=== PATIENT | male | born 2000 | race Caucasian/White ===

== ENCOUNTER 2020-07-26 17:00 | Emergency (ER) | payer OTHER ==
[2020-07-26 17:05] VITALS: RESP 18; TEMP 98.6
[2020-07-26] MEDS ORDERED: HYDROcodone/APAP 5-325MG 1 EACH TAB PO STA (17:13)
--- NOTE | 2020-07-26 17:32 | XR ---
EXAMINATION TYPE: XR shoulder complete LT DATE OF EXAM: 07/26/2020 COMPARISON: NONE HISTORY: Shoulder pain TECHNIQUE: 3 views FINDINGS: There is lucent line projected vertically through the scapula on one view suggestive of a n ondisplaced fracture that is approximate 1.5 cm from the articular surface of the glenoid. The proxim al humerus is intact. AC joint is intact. IMPRESSION: Possible hairline fracture of the scapula.
[2020-07-26] MEDS ORDERED: ACET/COD 300 MG/30 MG STARTER PACK 6 TAB BTL PO STA (17:53)
--- NOTE | 2020-07-26 17:53 | ED ---
Upper Extremity HPI - General Chief Complaint: Extremity Injury, Upper Stated Complaint: shoulder injury Time Seen by Provider: 07/26/20 17:06 Source: patient Mode of arrival: ambulatory Limitations: no limitations - History of Present Illness Initial Comments: 19-year-old male presents to the emergency room with the chief complaint of shoulder injury. Patient states that incident occurred about 2 hours prior to arrival while he was snowboarding. Patient reports he took a hard fall with his left shoulder extended out. Patient reports he felt several cracking noises and he had limited range of motion due to pain. Patient reports the pain is exacerbated with flexion and extension or abduction. N He denies taking medication to alleviate the symptoms. Denies any numbness or tingling. states the pain is sharp 5/10. denies head injury, LOC. - Related Data Allergies Allergy/AdvReac Type Severity Reaction Status Date / Time No Known Allergies Allergy Verified 07/26/20 17:05 Review of Systems ROS Statement: Those systems with pertinent positive or pertinent negative responses have been documented in the HPI. ROS Other: All systems not noted in ROS Statement are negative. Past Medical History Past Medical History: No Reported History History of Any Multi-Drug Resistant Organisms: None Reported Additional Past Surgical History / Comment(s): nose sx Past Psychological History: No Psychological Hx Reported Smoking Status: Never smoker Past Alcohol Use History: None Reported Past Drug Use History: None Reported General Exam Limitations: no limitations General appearance: alert, in no apparent distress Head exam: Present: atraumatic, normocephalic, normal inspection Eye exam: Present: normal appearance, PERRL, EOMI Pupils: Present: normal accommodation ENT exam: Present: normal exam, normal oropharynx, mucous membranes moist, TM's normal bilaterally, normal external ear exam Neck exam: Present: normal inspection, full ROM. Absent: tenderness Respiratory exam: Present: normal lung sounds bilaterally. Absent: respiratory distress Cardiovascular Exam: Present: regular rate, normal rhythm, normal heart sounds GI/Abdominal exam: Present: soft. Absent: distended Extremities exam: Present: normal inspection, tenderness (anterolateral tenderness over the left shoulder), normal capillary refill, other (palpable ulnar and radial pulses bilaterally). Absent: full ROM (limited active range of motion with abduction and flexion or extension left shoulder. Full passive range of motion), pedal edema, joint swelling, calf tenderness Back exam: Present: normal inspection, full ROM. Absent: tenderness Neurological exam: Present: alert, oriented X3 Psychiatric exam: Present: normal affect, normal mood Skin exam: Present: warm, dry, intact, normal color Course Vital Signs 07/26/20 17:01 Temperature 98.6 F Pulse Rate 83 Respiratory 18 Rate Blood Pressure 142/88 O2 Sat by Pulse 98 Oximetry Medical Decision Making - Medical Decision Making 19-year-old male presents to the emergency department with a chief complaint of left shoulder injury. On physical examination, he is neurovascularly intact. Patient was given Woden for pain. X-ray reveals a possible hairline fracture of the scapula. Tylenol 3 for pain. I still suspect there is a rotator cuff injury. Sling applied. Orthopedics follow-up. Return parameters discussed. Case discussed with Dr. Rizzo. Disposition Clinical Impression: Shoulder injury, Scapular fracture Disposition: HOME SELF-CARE Condition: Stable Instructions (If sedation given, give patient instructions): Rotator Cuff Injury (ED), Scapular Fracture (ED) Additional Instructions: Follow-up with home health specialist. Take prescribed medication as directed. Alternate between Tylenol and Motrin.Please return to the Emergency Department if symptoms worsen or any other concerns. Is patient prescribed a controlled substance at d/c from ED?: No Referrals: None,Stated [Primary Care Provider] - 1-2 days Drake Wagner MD [STAFF PHYSICIAN] - 1-2 days Time of Disposition: 17:53
[2020-07-26 18:09] VITALS: BP 130/66; PULSE 88
== END 2020-07-26 18:16 | disposition home or self-care (01) ==
LOC: EC 17:00
DX: S42.102A Fracture of unspecified part of scapula, left shoulder, initial encounter for closed fracture (principal); V00.311A Fall from snowboard, initial encounter; Y93.23 Activity, snow (alpine) (downhill) skiing, snowboarding, sledding, tobogganing and snow tubing
CPT/HCPCS: 99283

== ENCOUNTER → 2020-07-31 | Outpatient (CLI) | payer OTHER ==
--- NOTE | 2020-07-31 21:29 | CT ---
EXAMINATION TYPE: CT shoulder LT wo con DATE OF EXAM: 07/31/2020 COMPARISON: Radiographs 07/26/2020. HISTORY: Left shoulder pain after snowboarding injury. CT DLP: 345.7 mGycm Automated exposure control for dose reduction was used. Axial CT images of the left shoulder was perf ormed without contrast in bone and soft tissue windows. Coronal, sagittal and 3-D reformats were prov ided and reviewed. FINDINGS: There is nondisplaced oblique, extra-articular fracture of the superior to mid scapular body. No evid ence of dislocation or joint effusion. The remaining visualized osseous structures are in anatomic al ignment. The joint spaces are preserved. There is mild soft tissue edema about the fracture site. IMPRESSION: NONDISPLACED LEFT SCAPULAR FRACTURE.
== END | disposition home or self-care (01) ==
LOC: RADCTMAIN 16:36
PROVIDERS: ATTEND Orthopaedic Surgery Sports Medicine
DX: S42.102A Fracture of unspecified part of scapula, left shoulder, initial encounter for closed fracture (principal)

== ENCOUNTER → 2023-09-22 | Outpatient (CLI) | payer OTHER, BC ==
[2023-09-23 01:56] LABS: Basophils # (A) 0.05 X 10*3/uL (0.00-0.10); Basophils % (A) 0.8 %; Eosinophils # (A) 0.27 X 10*3/uL (0.04-0.35); Eosinophils % (A) 4.5 %; HCT 43.9 % (39.6-50.0); HGB 14.5 g/dL (13.0-17.0); Lymphocytes # (A) 1.17 X 10*3/uL (0.90-5.00); Lymphocytes % (A) 19.3 %; MCH 32.5 pg (27.0-32.0); MCV 98.4 FL (80.0-97.0); Mean Platelet Volume 9.7 FL (9.5-12.2); Monocytes # (A) 0.64 X 10*3/uL (0.20-1.00); Monocytes % (A) 10.6 %; NRBC Per 100 WBC 0 X 10*3/uL (0.00-0.01); Neutrophils % (A) 64.3 %; Platelet Count 322 X 10*3/uL (140-440); RBC 4.46 X 10*6/uL (4.40-5.60); RDW 12.6 % (11.5-14.5); WBC 6.06 X 10*3/uL (4.50-10.00)
== END | disposition home or self-care (01) ==
LOC: LABPAT 16:10
PROVIDERS: ATTEND Surgery
DX: Z01.818 Encounter for other preprocedural examination (principal); K40.90 Unilateral inguinal hernia, without obstruction or gangrene, not specified as recurrent; F17.200 Nicotine dependence, unspecified, uncomplicated; D64.9 Anemia, unspecified
CPT/HCPCS: 36415; 85025; 86850; 86900; 86901; 93005

== ENCOUNTER 2023-10-02 08:24 | Day surgery (SDC) | payer BC, OTHER ==
[2023-09-28 11:00] VITALS: BMI 22.0
--- NOTE | 2023-10-02 09:06 | P.GSHP ---
History of Present Illness H&P Date: 10/02/23 Chief Complaint: Left inguinal hernia 22-year-old male here today for elective repair left inguinal hernia. Increasing in size. Last seen in the office in the fall. Mild soreness at times. No prior hernias. Past Medical History Past Medical History: No Reported History Additional Past Medical History / Comment(s): LT INGUINAL HERNIA History of Any Multi-Drug Resistant Organisms: None Reported Additional Past Surgical History / Comment(s): nose sx Past Anesthesia/Blood Transfusion Reactions: No Reported Reaction Smoking Status: Never smoker - Past Family History Mother Family Medical History: No Reported History Medications and Allergies Home Medications Medication Instructions Recorded Confirmed Type No Known Home Medications 09/28/23 10/02/23 History Allergies Allergy/AdvReac Type Severity Reaction Status Date / Time No Known Allergies Allergy Verified 10/02/23 08:56 Surgical - Exam Vital Signs Temp Pulse Resp BP Pulse Ox 97.1 F L 61 16 123/72 99 10/02/23 09:01 10/02/23 09:01 10/02/23 09:01 10/02/23 09:01 10/02/23 09:01 Physical exam: General: Well-developed, well-nourished HEENT: Normocephalic, sclerae nonicteric Abdomen: Nontender, nondistended, reducible left inguinal hernia Extremities: No edema Neuro: Alert and oriented Assessment and Plan (1) Left inguinal hernia Narrative/Plan: 22-year-old male with left inguinal hernia. Will proceed with laparoscopic da Priya assisted repair left inguinal hernia with mesh, possible open, possible bilateral. Risks of bleeding, infection, recurrence, bladder and bowel injury, numbness, nerve injury, conversion to an open procedure were discussed with the patient. The patient understands and wishes to proceed. Current Visit: Yes Status: Acute Code(s): K40.90 - UNIL INGUINAL HERNIA, W/O OBST OR GANGR, NOT SPCF RECUR SNOMED Code(s): 212174921
[2023-10-02] MEDS: DEXAMETHASONE SOD PHOSPHATE 4 MG/ML 1 ML VIAL IV ONE (09:30)
[2023-10-02] MEDS: ACETAMINOPHEN TAB 500 MG TAB PO PRN (09:30)
[2023-10-02] MEDS: ONDANSETRON 4 MG/2 ML VIAL IVP ONE (09:30)
[2023-10-02] MEDS: HEPARIN SODIUM,PORCINE 5,000 UNIT/ML 1 ML VIAL SQ PRN (09:30)
[2023-10-02] MEDS: LACTATED RINGERS 1,000 ML IV SCH (09:30)
[2023-10-02] MEDS: TAMSULOSIN 0.4 MG CAP.ER.24H PO ONE (09:35)
[2023-10-02] MEDS ORDERED: SUCCINYLCHOLINE CHLORIDE 200 MG/10 ML VIAL IV ONE (10:03)
[2023-10-02] MEDS ORDERED: MIDAZOLAM 2 MG/2 ML VIAL ONE (10:03)
[2023-10-02] MEDS ORDERED: LIDOCAINE 1% INJ 10MG/ML (20 ML MDV) ONE (10:03)
[2023-10-02] MEDS ORDERED: PROPOFOL 10 MG/ML 20 ML VIAL IV ONE (10:03)
[2023-10-02] MEDS ORDERED: NEOSTIGMINE 1 MG/ML 10 ML VIAL ONE (10:03)
[2023-10-02] MEDS ORDERED: fentaNYL (PF) 50 MCG/ML 2 ML AMP ONE (10:03)
[2023-10-02] MEDS ORDERED: ROCURONIUM 10 MG/ML (5 ML VIAL) IV ONE (10:03)
[2023-10-02] MEDS ORDERED: GLYCOPYRROLATE 0.2 MG/ML 2 ML VIAL ONE (10:03)
[2023-10-02] MEDS: BUPIVACAINE (PF) 0.25% 30 ML VIAL SQ ONE ×2 (10:25→10:31)
[2023-10-02] MEDS: LACTATED RINGERS 1,000 ML IV ONE (11:34)
--- NOTE | 2023-10-02 11:54 | P.OP ---
Date of Procedure: 10/02/23 Procedure(s) Performed: PREOPERATIVE DIAGNOSIS: Left inguinal hernia POSTOPERATIVE DIAGNOSIS: Left indirect inguinal hernia PROCEDURE: Laparoscopic da Priya assisted repair left indirect inguinal hernia with mesh SURGEON: Dr. Jones ANESTHESIA: General OPERATIVE PROCEDURE DETAILS: Patient was placed in the operating table in the supine position. The patient was placed under general anesthesia. The abdomen was prepped and draped in usual sterile fashion. A small curvilinear supraumbilical incision was made. The fascia was retracted anteriorly with January forceps. The Veress needle was inserted. The saline drop test was normal. Insufflation took place to 15 mmHg. An 8 mm trocar was placed into the peritoneal cavity. 2 additional 8 mm trochars were placed in the right upper quadrant and left upper quadrant under visualization. The robotic arms were then brought in and docked into place. The fenestrated bipolar was used in the left arm and the laparoscopic gareth was utilized in the right arm. A 30 8 mm scope was used in the up position. The peritoneal cavity was inspected. The patient had a moderate sized indirect hernia on the left-hand side. No hernia was seen on the right. The peritoneum was incised in a horizontal fashion cephalad to the internal inguinal ring. Following that careful dissection of the preperitoneal space took place. This took place using both electrocautery, sharp dissection but primarily blunt dissection. Visualization of the pubic tubercle and Alverto's ligament took place medially. Full dissection took place laterally as well. The hernia sac was fully dissected. There was no visible cord lipoma penetrating through the internal inguinal ring. Once we had adequate space the [id number] Progrip mesh was advanced into the preperitoneal space and flattened out appropriately to cover all potential hernia sites. The mesh was sutured medially to Alverto's ligament and the midline fascia using a short running absorbable 3 OV lock suture. The peritoneal defect was then closed using a absorbable 2-0 VLok suture. The hernia sac was incorporated into the peritoneal closure to help prevent future recurrence. The pneumoperitoneum was then evacuated. The skin of all 3 sites was closed using a 4-0 Monocryl stitch. Skin glue was then applied. TYPE OF MESH USED: 15 x 10 cm ProGrip LOCATION OF MESH: Preperitoneal FIXATION: 3-0 absorbable V-Loc PREOPERATIVE DISCUSSION ON SMOKING CESSASTION: Yes PREOPERATIVE DISCUSSION ON MORBID OBESITY: Yes PREOPERATIVE DISCUSSION ON APPROPRIATE USE OF NARCOTIC USE: Yes PREOPERATIVE EDUCATION: Multi Modal, Smoking Cessation and Weight Loss with BMI over 35. DISPOSITION: Stable to recovery room
[2023-10-02] MEDS ORDERED: ACETAMINOPHEN TAB 325 MG TAB PO SCH (12:00)
[2023-10-02 12:20] VITALS: TEMP 97.8
[2023-10-02] MEDS: HYDROmorphone 0.5 MG/0.5 ML SYRINGE IVP PRN (12:26)
[2023-10-02 13:05] VITALS: RESP 16
[2023-10-02 13:50] VITALS: BP 120/55; PULSE 68
[2023-10-02] MEDS ORDERED: IBUPROFEN 600 MG TAB PO SCH (15:00)
== END 2023-10-02 14:02 | disposition home or self-care (01) ==
LOC: OR 08:24
PROVIDERS: ATTEND Surgery
DX: K40.90 Unilateral inguinal hernia, without obstruction or gangrene, not specified as recurrent (principal)
CPT/HCPCS: 49650; S2900